=== PATIENT | female | born 1960 | race Hispanic/Latino ===

== ENCOUNTER 2017-02-09 09:53 | Emergency (ER) | payer BC, OTHER ==
[2017-02-09 09:54] VITALS: BMI 38.9
[2017-02-09 10:00] VITALS: BP 156/87; PULSE 107; RESP 18; TEMP 98.3; O2SAT 96
--- NOTE | 2017-02-09 10:10 | ED PDOC ---
Arrival/HPI - General Chief Complaint: Trauma Time Seen by Provider: 02/09/17 09:56 Historian: Patient, Spouse - History of Present Illness Time/Duration: 1/2 hour Symptom Onset: Sudden Symptom Course: Improving Severity Level: Mild Associated Symptoms (Text): 02/09/17 10:07 Mechanical fall on an uneven sidewalk just prior to arrival. She suffered an abrasion on her left knee and her left palm. She hit her nose. There is a laceration over the bridge of her nose. She also cut her lower lip. There was no loss of consciousness syncope dizziness lightheadedness numbness tingling or paresthesias. No neck or back pain. No chest pain palpitations or dyspnea. No nausea or vomiting. She reports her tetanus is up to date. Past Medical History - Infectious Disease Hx of Infectious Diseases: None - Reproductive Menopause: Yes (8 years) - Cardiac Hx Cardiac Disorders: Yes Hx Hypertension: Yes - Pulmonary Hx Respiratory Disorders: No - Neurological Hx Neurological Disorder: No - HEENT Hx HEENT Disorder: Yes Other/Comment: glasses - Renal Hx Renal Disorder: No - Endocrine/Metabolic Hx Endocrine Disorders: No - Hematological/Oncological Hx Blood Disorders: No - Integumentary Hx Dermatological Disorder: No - Musculoskeletal/Rheumatological Hx Musculoskeletal Disorders: No - Gastrointestinal Hx Gastrointestinal Disorders: No - Genitourinary/Gynecological Hx Genitourinary Disorders: No - Psychiatric Hx Psychophysiologic Disorder: No Hx Substance Use: No - Anesthesia Hx Anesthesia: No Family/Social History - Physician Review Nursing Documentation Reviewed: Yes Family/Social History: Unknown Family HX Smoking Status: Never Smoked Hx Alcohol Use: Yes Frequency of alcohol use: Socially Hx Substance Use: No Allergies/Home Meds Allergies/Adverse Reactions: Allergies No Known Allergies Allergy (Verified 02/09/17 09:54) Home Medications: Home Meds Medication Instructions Recorded Confirmed amLODIPine [Norvasc] 5 mg PO DAILY 02/09/17 02/09/17 Review of Systems - Physician Review All systems were reviewed & negative as marked: Yes - Review of Systems Constitutional: Normal Respiratory: Normal Cardiovascular: Normal Gastrointestinal: Normal Musculoskeletal: Normal Neurological: Normal Physical Exam Vital Signs Temp Pulse Resp BP Pulse Ox 02/09/17 09:58 98.3 F 107 H 18 156/87 H 96 Temperature: Afebrile Blood Pressure: Normal Pulse: Regular Respiratory Rate: Normal Appearance: Positive for: Well-Appearing, Non-Toxic, Comfortable, Other (Anxious ) Pain Distress: None Mental Status: Positive for: Alert and Oriented X 3 - Systems Exam Head: Present: Normocephalic, Laceration. No: Tenderness, Contusion, Swelling, Ecchymosis, Abrasion Pupils: Present: PERRL Extroacular Muscles: Present: EOMI Conjunctiva: Present: Normal Ears: Present: NORMAL TM, Normal Canal. No: Erythema Mouth: Present: Moist Mucous Membranes, Normal Teeth, Other (Lower lip mucosal 1 cm laceration at gumline) Pharnyx: No: ERYTHEMA, EXUDATE, TONSILS ENLARGED Nose (External): Present: Contusion, Laceration (2 cm vertical, clinically no fracture) Nose (Internal): Present: Normal Inspection Neck: Present: Normal Range of Motion. No: MIDLINE TENDERNESS, Paraspinal Tenderness Back: Present: Normal Inspection. No: CVA Tenderness, Midline Tenderness, Paraspinal Tenderness Upper Extremity: Present: Normal ROM, NORMAL PULSES, Neurovascularly Intact, Other (Superficial nontender abrasion on her left hypothenar eminence). No: Cyanosis, Edema, Tenderness, Swelling, Erythema, Deformity Lower Extremity: Present: NORMAL PULSES, Normal ROM, Neurovascularly Intact, Other (Superficial nontender abrasion on left patella). No: Edema, CALF TENDERNESS, Cyanosis, Timbo's Sign, Tenderness, Swelling Neurological: Present: GCS=15, CN II-XII Intact, Speech Normal, Motor Func Grossly Intact Skin: Present: Warm, Dry, Normal Color. No: Rashes Psychiatric: Present: Alert, Oriented x 3, Normal Insight, Normal Concentration Medical Decision Making ED Course and Treatment: 02/09/17 10:45 Laceration #1 bridge of the nose. The wound was prepped and draped in usual sterile fashion using Betadine. Normal saline solution irrigation. 1% with epinephrine local lidocaine anesthesia was injected. The skin was closed with 6- 0 Prolene sutures. Sterile dressing was applied. Patient tolerated the procedure well. Laceration #2 lower lip mucosa. The wound was prepped with Betadine. 1% with epinephrine local lidocaine anesthesia was injected. The wound was closed with 5 -0 chromic. Patient tolerated the procedure well. - RAD Interpretation Radiology Orders: 02/09/17 10:06 NASAL BONES [RAD] Stat Nasal bone show no fracture or dislocation Newspaper Reporter: ED Physician - Medication Orders Current Medication Orders: Discontinued Medications Lidocaine/Epinephrine (Lidocaine 1%/Epinephrine 1:743912 30 Ml) 2 ml IJ STAT STA Stop: 02/09/17 10:19 Last Admin: 02/09/17 10:26 Dose: 2 ml Comments: Given to the doctor for use. Disposition/Present on Arrival - Present on Arrival Any Indicators Present on Arrival: No History of DVT/PE: No History of Uncontrolled Diabetes: No Urinary Catheter: No History of Decub. Ulcer: No History Surgical Site Infection Following: None - Disposition Have Diagnosis and Disposition been Completed?: Yes Diagnosis: Contusion, nose, Laceration of nose, Lip laceration, Abrasion Disposition: HOME/ ROUTINE Disposition Time: 10:47 Patient Plan: Discharge Condition: IMPROVED Discharge Instructions (ExitCare): Contusion in Adults (ED), Abrasion (ED), Laceration (ED) Additional Instructions: Tylenol or Advil as directed on bottle as needed. Follow-up with PMD. Follow up in ER as needed. Wound is to be kept Dry for 2 days. Wound check in 2 days. Suture removal from the bridge of the nose in 3-5 days. Sutures in the lip are dissolvable.
[2017-02-09] MEDS ORDERED: Lidocaine 1%/Epinephrine 1:100000 30 ml vial IJ STA (10:18)
--- NOTE | 2017-02-09 13:39 | RAD ---
PROCEDURE: Radiographs of Nasal Bones HISTORY: trauma COMPARISON: None available. TECHNIQUE: Frontal and lateral radiographs of the nasal bones. FINDINGS: No fracture of nasal bones visualized. No destructive lesion. Bony nasal septum appears intact and midline. IMPRESSION: No nasal bone fracture visualized.
== END 2017-02-09 11:00 | disposition home or self-care (01) ==
LOC: ED 09:53
DX: S01.21XA Laceration without foreign body of nose, initial encounter (principal); S01.511A Laceration without foreign body of lip, initial encounter; S80.212A Abrasion, left knee, initial encounter; S60.512A Abrasion of left hand, initial encounter; W01.0XXA Fall on same level from slipping, tripping and stumbling without subsequent striking against object, initial encounter; Y92.480 Sidewalk as the place of occurrence of the external cause